=== PATIENT | female | born 1955 ===

== ENCOUNTER 2017-07-03 21:15 | Emergency (ER) | payer SELFPAY ==
[2017-07-03 21:27] VITALS: BP 143/75; PULSE 73; RESP 20; TEMP 98.1; O2SAT 98
--- NOTE | 2017-07-03 22:33 | C.PDOC ---
History Of Present Illness 62 year old female presents to the ER with a complaint of left 4th finger pain, swelling, and laceration after she slammed the car door on her finger. Denies weakness or numbness. Time Seen by Provider: 07/03/17 21:34 Chief Complaint (Nursing): Upper Extremity Problem/Injury History Per: Patient History/Exam Limitations: no limitations Onset/Duration Of Symptoms: Hrs Current Symptoms Are (Timing): Still Present Exacerbating Factor(s): Strenuous Use Of Affected Area Recent travel outside of the [place]: No Past Medical History Reviewed: Historical Data, Nursing Documentation, Vital Signs Vital Signs: Last Vital Signs Temp 98.1 F 07/03/17 21:22 Pulse 73 07/03/17 21:22 Resp 20 07/03/17 23:13 BP 143/75 07/03/17 21:22 Pulse Ox 98 07/04/17 01:38 - Medical History PMH: Arthritis, Hypercholesterolemia Family History: States: Unknown Family Hx - Social History Hx Alcohol Use: No Hx Substance Use: No Review Of Systems Musculoskeletal: Positive for: Hand Pain Neurological: Negative for: Weakness, Numbness Physical Exam - Physical Exam Appears: Non-toxic, No Acute Distress Skin: Warm, Dry Head: Atraumatic, Normacephalic Eye(s): bilateral: Normal Inspection Extremity: Normal ROM (x4), Capillary Refill (<2 seconds), No Deformity, Other ( Contusion with 1cm superficial laceration to anterior aspect of left 4th finger. No subungal hematoma.) Pulses: Left Radial: Normal, Right Radial: Normal Neurological/Psych: Oriented x3, Normal Speech, Normal Motor, Normal Sensation ED Course And Treatment O2 Sat by Pulse Oximetry: 98 (room air) Pulse Ox Interpretation: Normal - Other Rad Left hand x-ray X-Ray: Interpreted by Me, Viewed By Me Interpretation: No acute fractures or dislocations. Progress Note: Left hand x-ray ordered, results were negative. Tylenol administered for pain with relief. Patient placed in a finger splint to left 4th finger for support, and given proper wound care instructions and advised to follow up with PMD for further evaluation or return if symptoms worsen. Laceration - Laceration Repair Left 4th finger Wound Length (In cm): 1 Description Of Wound: Linear Wound Cleansed With: Betadine, Sterile Saline Wound Examination: Irrigated With Saline, No FB With Wound Exploration, No Tendon Injury With Wound Exploration Wound Closure: Steri Strips (x2), Skin Glue (dermabond) Wound Complexity: Simple Disposition Counseled Patient/Family Regarding: Diagnosis, Need For Followup, Rx Given - Disposition Disposition: HOME/ ROUTINE Disposition Time: 22:30 Condition: STABLE Additional Instructions: Please follow up with PMD Apply cold compress to area Take tylenol or advil for pain Return to ER if worse Instructions: Laceration Repair With Glue (DC), Contusion (DC) Forms: [employer] (Frisian) Print Language: KYRGYZ - Clinical Impression Clinical Impression: Contusion of finger of left hand, Laceration of finger of left hand - 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 - Scribe Statement The provider has reviewed the documentation as recorded by the Scribjim Mercado All medical record entries made by the Chitraibjim were at my direction and personally dictated by me. I have reviewed the chart and agree that the record accurately reflects my personal performance of the history, physical exam, medical decision making, and the department course for this patient. I have also personally directed, reviewed, and agree with the discharge instructions and disposition.
--- NOTE | 2017-07-04 08:25 | RAD ---
Left hand 4th digit three views History: Pain. Comparison: None available. Findings: No evidence of acute displaced fracture or dislocation. Narrowing of the 2nd through 5th PIP and DIP joint spaces. Diffuse osteopenia. Impression: Negative acute. If pain persists, consider MRI.
== END 2017-07-03 23:13 | disposition home or self-care (01) ==
LOC: C.ER 21:15
DX: S61.215A Laceration without foreign body of left ring finger without damage to nail, initial encounter (principal); S60.042A Contusion of left ring finger without damage to nail, initial encounter; W23.0XXA Caught, crushed, jammed, or pinched between moving objects, initial encounter